=== PATIENT | female | born 1975 | race Caucasian/White ===

== ENCOUNTER 2022-04-28 19:54 | Emergency (ER) | payer OTHER ==
[~2022-04-28] VITALS: Ht 167.6 cm; Wt 145.1 kg
--- NOTE | 2022-04-28 20:05 | NUR ---
Dr. Reynolds examining patient at [facility].
[2022-04-28 20:07] VITALS: BP 151/82
--- NOTE | 2022-04-28 20:07 | NUR ---
Patient BIB by BLS. C/O left hip pain x today. Patient slipped and fell today and left hip pain. PMHx: HLD, HTD, Hypothyroid
[2022-04-28] MEDS ORDERED: KETOROLAC 30 MG/ML VIAL IM ONE (20:10)
--- NOTE | 2022-04-28 20:48 | NUR ---
Patient place on bed 4.
--- NOTE | 2022-04-28 21:43 | NUR ---
rad at bedside.
--- NOTE | 2022-04-28 22:18 | NUR ---
pt endorsed to [facility]. transfer of care at this time.
--- NOTE | 2022-04-28 22:48 | NUR ---
Dr. Reynolds explained results and treatment results.
[2022-04-28] MEDS ORDERED: CYCL-711 PO (22:55)
[2022-04-28] MEDS ORDERED: DICL100G5 TP (22:55)
[2022-04-28] MEDS ORDERED: IBUP-2213 PO (22:55)
[2022-04-28 23:25] VITALS: BP 130/76
--- NOTE | 2022-04-28 23:25 | NUR ---
Patient discharged with v/s stable. Written and verbal after care instructions given and explained. Patient alert, oriented and verbalized understanding of instructions. Wheel Chair Assisted with to car. All questions addressed prior to discharge. ID band removed. Patient advised to follow up with PMD. Rx of Flexeril , Diclofenac and Ibuprofen given. Patient educated on indication of medication including possible reaction and side effects. Opportunity to ask questions provided and answered.
== END 2022-04-28 23:25 | disposition home or self-care (01) ==
LOC: MED 19:54
DX: M25.552 Pain in left hip (principal); Z88.0 Allergy status to penicillin; Z88.2 Allergy status to sulfonamides; Z88.8 Allergy status to other drugs, medicaments and biological substances
CPT/HCPCS: 73502; 96372; 99283; J1885; Q0092